=== PATIENT | male | born 1970 | race African-American/Black ===

== ENCOUNTER 2018-12-29 09:07 | Emergency (ER) | payer MEDICAID ==
[~2018-12-29] VITALS: Ht 175.3 cm; Wt 176.0 kg
[2018-12-29 09:57] VITALS: BP 176/60
== END 2018-12-29 15:13 | disposition home or self-care (01) ==
LOC: ER 09:07
DX: S80.211A Abrasion, right knee, initial encounter (principal); W01.0XXA Fall on same level from slipping, tripping and stumbling without subsequent striking against object, initial encounter; Y93.89 Activity, other specified; Y92.89 Other specified places as the place of occurrence of the external cause; F17.210 Nicotine dependence, cigarettes, uncomplicated; Z71.6 Tobacco abuse counseling
CPT/HCPCS: 73564; 99283; 99406

== ENCOUNTER 2020-06-13 08:25 | Emergency (ER) | payer MEDICAID ==
[~2020-06-13] VITALS: Ht 175.3 cm; Wt 81.0 kg
[2020-06-13] MEDS ORDERED: IBUPROFEN 600MG TABLET PO ONE (10:00)
[2020-06-13 10:04] VITALS: BP 144/97
== END 2020-06-13 10:11 | disposition home or self-care (01) ==
LOC: ER 08:30
DX: R51.9 Headache, unspecified (principal); H92.02 Otalgia, left ear; Z87.820 Personal history of traumatic brain injury; R68.84 Jaw pain
CPT/HCPCS: 99282

== ENCOUNTER 2021-04-09 14:36 | Emergency (ER) | payer MEDICAID ==
[2021-04-09] MEDS ORDERED: BENZ-16 MT (20:39)
== END 2021-04-09 15:57 | disposition left against medical advice (07) ==
LOC: ER 14:36
DX: Z53.21 Procedure and treatment not carried out due to patient leaving prior to being seen by health care provider (principal)

== ENCOUNTER 2021-04-09 17:29 | Emergency (ER) | payer MEDICAID ==
[~2021-04-09] VITALS: Ht 175.3 cm; Wt 83.0 kg
[2021-04-09] MEDS ORDERED: BENZ-16 MT (20:39)
[2021-04-09] MEDS ORDERED: IBUPROFEN 600MG TABLET PO ONE (20:45)
[2021-04-09 20:55] VITALS: BP 128/87
== END 2021-04-09 21:02 | disposition home or self-care (01) ==
LOC: ER 17:29
DX: R05.9 Cough, unspecified (principal); Z20.822 Contact with and (suspected) exposure to COVID-19; F17.290 Nicotine dependence, other tobacco product, uncomplicated
CPT/HCPCS: 71045; 99284; C9803; U0003; U0005